=== PATIENT | male | born 1950 | race Caucasian/White ===

== ENCOUNTER → 2021-01-01 09:49 | Outpatient (BNVA) | payer MEDICARE, OTHER, SELFPAY | PROVIDERS: Visit Provider Nurse Practitioner Family | DX: Z20.822 Contact with and (suspected) exposure to COVID-19 (principal) | CPT/HCPCS: 87635 ==

== ENCOUNTER 2021-01-04 11:35 | Outpatient (CLI) | payer MEDICARE, OTHER, SELFPAY ==
[2021-01-04 11:50] VITALS: BP 127/75; PULSE 75; RESP 18; TEMP 36.5; O2SAT 96; BMI 25.0
[2021-01-04 12:20] VITALS: BP 117/71; PULSE 54; RESP 18; O2SAT 97
[2021-01-04 13:19] VITALS: BP 118/70; PULSE 76; RESP 16; TEMP 36.6; O2SAT 96
== END 2021-01-04 11:36 | disposition home or self-care (01) ==
LOC: OPS 11:39
PROVIDERS: Visit Provider Nurse Practitioner Family
DX: U07.1 COVID-19 (principal)
CPT/HCPCS: 96365